=== PATIENT | female | born 1995 | race Caucasian/White ===

== ENCOUNTER → 2019-11-24 | Outpatient (REF) | payer BC ==
[2019-11-24 13:47] LABS: HEMATOCRIT 41.4 % (36.0-47.0); HEMOGLOBIN 14.1 g/dl (12.0-15.5); MEAN CORPUSCULAR HEMOGLOBIN 31.3 pg (27.0-33.0); MEAN CORPUSCULAR HGB CONC 34.1 g/dl (32.0-36.5); MEAN CORPUSCULAR VOLUME 91.8 fl (80.0-96.0); PLATELET COUNT, AUTOMATED 221 10^3/uL (150-450); RED BLOOD COUNT 4.51 10^6/uL (4.00-5.40); WHITE BLOOD COUNT 12.6 10^3/uL (4.0-10.0)
[2019-11-24 15:25] LABS: CHLAMYDIA DNA AMPLIFICATION NEGATIVE (NEGATIVE); GC DNA AMPLIFICATION NEGATIVE (NEGATIVE)
[2019-11-25 10:40] LABS: HEPATITIS C VIRUS ABY INDEX 0.1 INDEX (<0.8); HIV 1&2 SCREEN CENTAUR NEGATIVE (NEGATIVE)
== END ==
LOC: M PLALAB 10:45
PROVIDERS: ATTEND Advanced Practice Midwife
DX: Z34.01 Encounter for supervision of normal first pregnancy, first trimester (principal); Z3A.00 Weeks of gestation of pregnancy not specified

== ENCOUNTER → 2020-01-21 | Outpatient (CLI) | payer BC ==
[2020-01-21 17:31] LABS: FREE T4 0.95 NG/DL (0.76-1.46); THYROID STIMULATING HORMONE 1.26 uIU/ML (0.358-3.740)
== END ==
LOC: M PLALAB 12:01
PROVIDERS: ATTEND Advanced Practice Midwife
DX: R53.83 Other fatigue (principal)

== ENCOUNTER → 2020-01-22 | Outpatient (CLI) | payer BC ==
--- NOTE | 2020-02-16 13:11 | REP ---
COMPLETE OBSTETRICAL ULTRASOUND CLINICAL: Anatomical assessment. TECHNIQUE: Transabdominal obstetrical ultrasound with color Doppler evaluation. COMPARISON: None. FINDINGS: Ultrasound examination demonstrates a single live intrauterine in breech presentation. motion was identified by the technologist. Placenta noted posteriorly and grade 1 without placenta previa or abruption. Amniotic fluid volume is normal. cervix measures 3.5 cm in length and appears closed. heart rate 143 beats per minute. MEASUREMENTS: BPD 43 mm 19 weeks 0 days HC 161 mm 19 weeks 0 days AC 135 mm 19 weeks 0 days FL 29 mm 19 weeks 0 days HL 28 mm 19 weeks 1 day Estimated age by current measurements 19 weeks 0 days with estimated date of delivery 06/17/2020. Estimated weight 265 grams (50th percentile). Anatomical assessment demonstrates normal cisterna magna, cavum, thalamus, spine, stomach, kidneys/bladder, four chamber heart/ventricular outflow tracts, three-vessel cord/cord insertion, facial features, and extremities. IMPRESSION: Single live intrauterine in breech presentation demonstrating appropriate estimated weight. Anatomical assessment is complete and normal. No gross abnormalities are identified. MTDD
== END ==
LOC: M WHC 15:26
PROVIDERS: ATTEND Advanced Practice Midwife
DX: O32.1XX0 Maternal care for breech presentation, not applicable or unspecified (principal); Z3A.19 19 weeks gestation of pregnancy

== ENCOUNTER → 2020-03-15 | Outpatient (REF) | payer BC ==
[2020-03-15 14:11] LABS: HEMATOCRIT 35.7 % (36.0-47.0); MEAN CORPUSCULAR HEMOGLOBIN 31.9 pg (27.0-33.0); MEAN CORPUSCULAR HGB CONC 33.6 g/dl (32.0-36.5); MEAN CORPUSCULAR VOLUME 94.9 fl (80.0-96.0); PLATELET COUNT, AUTOMATED 216 10^3/uL (150-450); RED BLOOD COUNT 3.76 10^6/uL (4.00-5.40); WHITE BLOOD COUNT 13.6 10^3/uL (4.0-10.0)
== END ==
LOC: M PLALAB 10:15
PROVIDERS: ATTEND Advanced Practice Midwife
DX: Z34.02 Encounter for supervision of normal first pregnancy, second trimester (principal)

== ENCOUNTER → 2020-04-22 | Outpatient (REF) | payer BC, SELFPAY ==
[~2020-04-22] MED LIST: PRENATAL VITAMIN OR; TUMS750C5 PO
== END ==
LOC: M PLALAB 09:37
PROVIDERS: ATTEND Advanced Practice Midwife
DX: Z34.03 Encounter for supervision of normal first pregnancy, third trimester (principal)

== ENCOUNTER 2020-04-25 12:58 | Emergency (ER) | payer BC, OTHER, SELFPAY ==
[~2020-04-25] VITALS: Ht 157.5 cm; Wt 98.8 kg
[2020-04-25 13:15] VITALS: BP 133/87
[2020-04-25] MEDS ORDERED: PRENATAL VITAMIN OR (13:20)
[2020-04-25] MEDS ORDERED: TUMS750C5 PO (14:21)
== END 2020-04-25 13:54 | disposition admitted as inpatient to this hospital (09) ==
LOC: M ED 12:58
DX: Z04.1 Encounter for examination and observation following transport accident (principal); V43.52XA Car driver injured in collision with other type car in traffic accident, initial encounter; Y92.410 Unspecified street and highway as the place of occurrence of the external cause; Z3A.32 32 weeks gestation of pregnancy

== ENCOUNTER 2020-04-25 14:01 | Outpatient (CLI) | payer OTHER, SELFPAY ==
[~2020-04-25] VITALS: Ht 157.5 cm; Wt 98.5 kg
[~2020-04-25 14:01] MED LIST changes: -TUMS750C5 PO
[2020-04-25] MEDS ORDERED: TUMS750C5 PO (14:21)
[2020-04-25 14:23] VITALS: BP 138/87
[2020-04-25 14:26] LABS: HEMOGLOBIN 11.7 g/dl (12.0-15.5); MEAN CORPUSCULAR HEMOGLOBIN 30.7 pg (27.0-33.0); MEAN CORPUSCULAR HGB CONC 33.4 g/dl (32.0-36.5); MEAN CORPUSCULAR VOLUME 91.9 fl (80.0-96.0); PLATELET COUNT, AUTOMATED 247 10^3/uL (150-450); RED BLOOD COUNT 3.81 10^6/uL (4.00-5.40)
[2020-04-25 14:43] LABS: INR 0.86; PROTHROMBIN TIME 11.9 SECONDS (12.5-14.3)
[2020-04-25 15:37] VITALS: BP 133/79
[2020-04-25 17:08] VITALS: BP 129/77
[2020-04-25] MEDS ORDERED: RHOGAM 300 MCG (1500 IU) INJ (J2790) IM ONE (17:15)
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
== END 2020-04-25 17:31 | disposition home or self-care (01) ==
LOC: M LDO 14:01
PROVIDERS: ATTEND Advanced Practice Midwife
DX: Z04.1 Encounter for examination and observation following transport accident (principal); Z3A.32 32 weeks gestation of pregnancy
CPT/HCPCS: 36415; 59025; 85027; 85384; 85460; 85610; 86850; 86900; 86901; 96372; G0378; G0463; J2790

== ENCOUNTER → 2020-05-25 | Outpatient (REF) | payer BC ==
[~2020-05-25] MED LIST changes: +ACET-683 PO; +IBUP80TA PO; +TUMS750C5 PO
== END ==
LOC: M SFHCWAGY 10:01
PROVIDERS: ATTEND Advanced Practice Midwife
DX: O99.820 Streptococcus B carrier state complicating pregnancy (principal); Z3A.36 36 weeks gestation of pregnancy

== ENCOUNTER 2020-06-15 15:57 | Inpatient (IN) | payer BC, OTHER ==
[~2020-06-15] VITALS: Ht 157.5 cm; Wt 102.5 kg
[2020-06-15] VITALS (10 sets, daily range): BP systolic 104–146; BP diastolic 64–92
[~2020-06-15 15:57] MED LIST changes: -ACET-683 PO; -IBUP80TA PO
--- OUTSIDE RECORDS SUMMARY | 2020-06-15 16:50 | CCD ---
Author Author [facility] Organization [facility] Address Unknown Phone Unavailable Care Team Providers Care Microbiological Analyst Name Role Phone Ricarda Villar Unavailable PROBLEMS Type Condition ICD9-CM Code [id number] Code Onset Dates Condition S tatus SNOMED Code Notes Problem Allergic rhinitis, unspecified seasonality, unspecifie d trigger J30.9 Active 21870420 Problem Supervision of other normal Z34.80 Ac tive 171483184 ALLERGIES No Known Allergies ENCOUNTERS from 1994 to 2020-06-07 Encounter Location Date Provider Diagnosis [facility] [address] [place] [phone] May, Ricarda Villar 37 weeks gestatio n of Z3A.37 ; Diseases of the respiratory system complicating , third trimester O99.513 and Asthma J45.909 IMMUNIZATIONS Vaccine Route Administration Date Status TDAP 0.5mL (Boostrix) IM Intramuscular May 09, 2020 Administe red SOCIAL HISTORY Tobacco Use: Social History Observation Description Date Details (start date - stop date) Never Smoker Sex Assigned At : Social History Observation Description Sex Assigned At Unknown Education: Question Answer Notes Level of Education: College Language: Question Answer Notes Languages spoken: Macedonian Alcohol Screening: Question Answer Notes Did you have a drink containing alcohol in the past year? Ye s Points 2 Interpretation Negative How often did you have six or more drinks on one occas ion in the past year? Never (0 points) How many drinks did you have on a typica l day when you were drinking in the past year? 1 or 2 (0 points) How often did you have a drink containing alcohol in t he past year? Two to four times a month (2 points) Tobacco Use: Question Answer Notes Are you a: never smoker REASON FOR REFERRAL No Information VITAL SIGNS Weight 223.4 lbs May, Weight-kg 101.33 kg May, Height 62 in May, BMI 40.86 kg/m2 May, Blood pressure systolic 128 mm Hg May, Blood pressure diastolic 72 mm Hg May, MEDICATIONS Medication SIG (Take, Route, Frequency, Duration) Notes Start Da te End Date Status Vitamin Active Spacer/Aero-Holding Chambers - as directed _ _ for 99 months Oct, Not-Taking Ventolin HFA 108 (90 Base) MCG/ACT 2 puffs as needed I nhalation every 6 hrs as needed for 30 day(s) Oct, Not-Taking Vitamin D 25 MCG (1000 UT) 1 tablet Orally Once a day Active Vitamin B 12 Not-Taking PROCEDURES No Information RESULTS No Results REASON FOR VISIT 1 WK PN MEDICAL (GENERAL) HISTORY Type Description Date Medical History asthma - mild intermittent Surgical History tonsillectomy Surgical History wisdom teeth Goals Section No Information Health Concerns No Information MEDICAL EQUIPMENT No Information MENTAL STATUS No Information FUNCTIONAL STATUS No Information ASSESSMENTS Encounter Date Diagnosis Assessment Notes Treatment Notes Treatm ent Clinical Notes May, 37 weeks gestation of (ICD-10 - Z3A.37 ) May, Diseases of the respiratory system complicating , third trimester (ICD-10 - O99.513) May, Asthma (ICD-10 - J45.909) PLAN OF TREATMENT Next Appt Details 1 Week Reason:PN Provider Name:Ricarda Villar, 2020-06-08 08:40:00 AM, [address] [place], [address], Follow Up:1 WeekPN Insurance Providers Payer Name Payer Address Payer Phone Insured Name Patient Relati onship to Insured Coverage Start Date Coverage End Date BCBS OF [facility] [phone] [facility] [address] [place] self
--- OUTSIDE RECORDS SUMMARY | 2020-06-15 16:50 | CCD ---
Author Author [facility] Organization [facility] Address Unknown Phone Unavailable Care Team Providers Care Grocery Clerk Checking Name Role Phone Ricarda Villar Unavailable PROBLEMS Type Condition ICD9-CM Code [id number] Code Onset Dates Condition S tatus SNOMED Code Notes Problem Allergic rhinitis, unspecified seasonality, unspecifie d trigger J30.9 Active 33890149 Problem Supervision of other normal Z34.80 Ac tive 852342511 ALLERGIES No Known Allergies ENCOUNTERS from 1994 to 2020-05-28 Encounter Location Date Provider Diagnosis [facility] [address] [place] [phone] May, Ricarda Villar 36 weeks gestatio n of Z3A.36 ; Other specified related conditions, third trimester O26.893 and Pelvic pain R10.2 IMMUNIZATIONS Vaccine Route Administration Date Status TDAP 0.5mL (Boostrix) IM Intramuscular May 09, 2020 Administe red SOCIAL HISTORY Tobacco Use: Social History Observation Description Date Details (start date - stop date) Never Smoker Sex Assigned At : Social History Observation Description Sex Assigned At Unknown Education: Question Answer Notes Level of Education: College Language: Question Answer Notes Languages spoken: Nicaraguan Alcohol Screening: Question Answer Notes Did you [...] FOR REFERRAL No Information VITAL SIGNS Weight 224 lbs May, Weight-kg 101.6 kg May, Height 62 in May, BMI 40.97 kg/m2 May, Blood pressure systolic 128 mm Hg May, Blood pressure diastolic 82 mm Hg May, MEDICATIONS Medication SIG (Take, Route, Frequency, Duration) Notes Start Da te End Date Status Spacer/Aero-Holding Chambers - as directed _ _ for 99 months Oct, Not-Taking Vitamin D 25 MCG (1000 UT) 1 tablet Orally Once a day Active Ventolin HFA 108 (90 Base) MCG/ACT 2 puffs as needed I nhalation every 6 hrs as needed for 30 day(s) Oct, Not-Taking Vitamin Active Vitamin B 12 Not-Taking PROCEDURES No Information RESULTS No Results REASON FOR VISIT 2WK PN MEDICAL (GENERAL) HISTORY Type Description Date Medical History asthma - mild intermittent Surgical History tonsillectomy Surgical History wisdom teeth Goals Section No Information Health Concerns No Information MEDICAL EQUIPMENT No Information MENTAL STATUS No Information FUNCTIONAL STATUS No Information ASSESSMENTS Encounter Date Diagnosis Assessment Notes Treatment Notes Treatm ent Clinical Notes May, 36 weeks gestation of (ICD-10 - Z3A.36 ) May, Other specified re lated conditions, third trimester (ICD- 10 - O26.893) May, Pelvic pain (ICD-10 - R10.2) PLAN OF TREATMENT Treatment Notes Test Name Order Date GROUP B STREP CULTURE 2020-05-28 Next Appt Details 1 Week Reason: Provider Name:Ricarda Araizaalanis, 2020-06-01 09:00:00 AM, [address] [place], [phone], Follow Up:1 WeekPrenatal Insurance Providers Payer Name Payer Address Payer Phone Insured Name Patient Relati onship to Insured Coverage Start Date Coverage End Date BCBS OF [facility] [phone] [facility] [id number] TR[place]EE
--- OUTSIDE RECORDS SUMMARY | 2020-06-15 16:51 | CCD ---
Author Author [facility] Organization [facility] Address Unknown Phone Unavailable Care Team Providers Care Terra Cotta Mold Maker Name Role Phone Navarro, Cullen Unavailable PROBLEMS Type Condition ICD9-CM Code QIA52-RP Code Onset Dates Condition S tatus SNOMED Code Notes Problem Allergic rhinitis, unspecified seasonality, unspecifie d trigger J30.9 Active 19005879 Problem Supervision of other normal Z34.80 Ac tive 985422188 ALLERGIES No Known Allergies ENCOUNTERS from 1994 to 2020-05-11 Encounter Location Date Provider Diagnosis [facility] [address] [place] [phone] Apr, Cullen Navarro Normal first pregnan cy in third trimester Z34.03 ; 34 weeks gestation of Z3A.34 and Encounter for immunization Z23 IMMUNIZATIONS Vaccine Route Administration Date Status TDAP 0.5mL (Boostrix) IM Intramuscular May 09, 2020 Administe red SOCIAL HISTORY Tobacco Use: Social History Observation Description Date Details (start date - stop date) Never Smoker Sex Assigned At : Social History Observation Description Sex Assigned At Unknown Education: Question Answer Notes Level of Education: College Language: Question Answer Notes Languages spoken: Maltese Alcohol Screening: Question Answer Notes Did you [...] FOR REFERRAL No Information VITAL SIGNS Weight 219 lbs Apr, Height 62 in Apr, BMI 40.056 kg/m2 Apr, Blood pressure systolic 122 mm Hg Apr, Blood pressure diastolic 64 mm Hg Apr, MEDICATIONS Medication SIG (Take, Route, Frequency, Duration) [...] Vitamin Active Vitamin B 12 Not-Taking PROCEDURES from 1994 to 2020-05-11 Procedure Date Ordered Result Body Site Immunization: Boostrix 0.5mL IM (TDAP) 2020-05-09 N/A RESULTS No Results REASON FOR VISIT 4 WK PN MEDICAL (GENERAL) HISTORY Type Description Date Medical History asthma - mild intermittent Surgical History tonsillectomy Surgical History wisdom teeth Goals Section No Information Health Concerns No Information MEDICAL EQUIPMENT No Information MENTAL STATUS No Information FUNCTIONAL STATUS No Information ASSESSMENTS Encounter Date Diagnosis Assessment Notes Treatment Notes Treatm ent Clinical Notes Apr, Normal first in third trimester (ICD-1 0 - Z34.03) Apr, 34 weeks gestation of (ICD-10 - Z3A.34 ) Apr, Encounter for immunization (ICD-10 - Z23) PLAN OF TREATMENT Next Appt Details 2 Weeks Reason:follow-up Provider Name:Ricarda Villar, 2020-05-25 01:40:00 PM, [address] [place], [address], Follow Up:2 Weeksfollow-up Insurance Providers Payer Name Payer Address Payer Phone Insured Name Patient Relati onship to Insured Coverage Start Date Coverage End Date BCBS OF [facility] [phone] [facility] [id number] [place] self
--- OUTSIDE RECORDS SUMMARY | 2020-06-15 16:51 | CCD | Continuity of Care Document ---
Author Author Maria Guadalupe SUMNER Organization Unknown Address [address] [place], [place] [address] Phone [phone] Care Team Providers Care Blow Molding Machine Operator Name Role Phone Jovon Michel Publi AUTM [phone] Problems Description No Information Available Social History Type Date Description Comments Sex Unknown Allergies, Adverse Reactions, Alerts Description No Information Available Medications Description No Information Available Immunizations Description No Information Available Vital Signs Description No Information Available Results Description No Information Available Procedures Description No Information Available Medical Devices Description No Information Available Encounters Description No Information Available Assessments Date Code Description Provider 04/20/2020 Z20.828 Contact with and (garcia spected) exposure to other viral communicable diseases JACOB Yan Plan of Treatment No Information Available Functional Status Description No Information Available Mental Status Description No Information Available Referrals Description No Information Available
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
--- OUTSIDE RECORDS SUMMARY | 2020-06-15 16:51 | CCD ---
Author Author [facility] Organization [facility] Address Unknown Phone Unavailable Care Team Providers Care Spring Layer Name Role Phone HugoRonnell Unavailable PROBLEMS Type Condition ICD9-CM Code [id number] Code Onset Dates Condition S tatus SNOMED Code Notes Problem Allergic rhinitis, unspecified seasonality, unspecifie d trigger J30.9 Active [id number] Problem Supervision of other normal Z34.80 Ac tive [id number] ALLERGIES No Known Allergies ENCOUNTERS from 1994 to 2020-04-27 Encounter Location Date Provider Diagnosis [facility] [address] [place] [id number] Apr, Ronnell Arias Encounter for superv ision of normal first in third trimester Z34.03 and 31 weeks gestation of Z3A.31 IMMUNIZATIONS No Information SOCIAL HISTORY Tobacco Use: Social History Observation Description Date Details (start date - stop date) Never Smoker Sex Assigned At : Social History Observation Description Sex Assigned At Unknown Education: Question Answer Notes Level of Education: College Language: Question Answer Notes Languages spoken: Singaporean Sexual Hx: Question Answer Notes Had sex [...] FOR REFERRAL No Information VITAL SIGNS Weight 214 lbs Apr, Height 62 in Apr, BMI 39.141 kg/m2 Apr, Blood pressure systolic 132 mm Hg Apr, Blood pressure diastolic 74 mm Hg Apr, MEDICATIONS Medication SIG (Take, Route, Frequency, Duration) Notes Start Da te End Date Status Vitamin B 12 Not-Taking Ventolin HFA 108 (90 Base) MCG/ACT 2 puffs as needed I nhalation every 6 hrs as needed for 30 day(s) Oct, Not-Taking Vitamin D 25 MCG (1000 UT) 1 tablet Orally Once a day Active Vitamin Active Spacer/Aero-Holding Chambers - as directed _ _ for 99 months Oct, Not-Taking PROCEDURES No Information RESULTS No Results REASON FOR VISIT 4 WK PN MEDICAL (GENERAL) HISTORY Type Description Date Medical History asthma - mild intermittent Surgical History tonsillectomy Surgical History wisdom teeth Goals Section No Information Health Concerns No Information MEDICAL EQUIPMENT No Information MENTAL STATUS No Information FUNCTIONAL STATUS No Information ASSESSMENTS Encounter Date Diagnosis Assessment Notes Treatment Notes Treatm ent Clinical Notes Apr, Encounter for supervision of normal first in third trimester (ICD-10 - Z34.03) Apr, 31 weeks gestation of (ICD-10 - Z3A.31 ) PLAN OF TREATMENT Treatment Notes Test Name Order Date RHOGAM 2020-04-27 Next Appt Details 2 Weeks Reason: Provider Name:Cullen Navarro, 08:40:00 AM, [address] [place], [address], Insurance Providers Payer Name Payer Address Payer Phone Insured Name Patient Relati onship to Insured Coverage Start Date Coverage End Date BCBS [facility] CINTHYA O [id number] [facility] [employer] [facility] [place] [address] TRIPP LEE self
--- OUTSIDE RECORDS SUMMARY | 2020-06-15 16:51 | CCD | Continuity of Care Document ---
Author Author Maria Guadalupe [facility] Organization Unknown Address [address] [place], [place] [address] Phone [phone] Care Team Providers Care Case Manager Name Role Phone Jovon Michel Publi AUTM [phone] Problems Description No Information Available Social History Type Date Description Comments Sex Unknown Allergies, Adverse Reactions, Alerts Description No Information Available Medications Description No Information Available Immunizations Description No Information Available Vital Signs Description No Information Available Results Description No Information Available Procedures Description No Information Available Medical Devices Description No Information Available Encounters Description No Information Available Assessments Description No Information Available Plan of Treatment No Information Available Functional Status Description No Information Available Mental Status Description No Information Available Referrals Description No Information Available
[2020-06-15 18:00] LABS: HEMATOCRIT 37.1 % (36.0-47.0); HEMOGLOBIN 12.6 g/dl (12.0-15.5); MEAN CORPUSCULAR HEMOGLOBIN 30.9 pg (27.0-33.0); MEAN CORPUSCULAR VOLUME 90.9 fl (80.0-96.0); PLATELET COUNT, AUTOMATED 216 10^3/uL (150-450); RED BLOOD COUNT 4.08 10^6/uL (4.00-5.40); WHITE BLOOD COUNT 16.5 10^3/uL (4.0-10.0)
--- NOTE | 2020-06-15 19:04 | HPE ---
HISTORY AND PHYSICAL DATE OF ADMISSION: 06/15/2020 HISTORY OF PRESENT ILLNESS: Maria Guadalupe is a 25-year-old 1, para 0, at 39 4/7 weeks gestation with an EDC of 06/18/2020, based on last menstrual period and confirmed by first trimester ultrasound. She presents to labor and delivery today with report of uncomfortable contractions that started at approximately 0500 and have progressively become closer together and more painful throughout the day. She does report some scant bloody show. Denies leakage of fluid and the fetus has been active. [facility] care was initiated at [facility] in the first trimester. Her course has been uncomplicated. OBSTETRIC HISTORY: Primigravida. OBSTETRIC LABS: A negative. Antibody screen negative. Syphilis negative. Gonorrhea and chlamydia negative. Hepatitis B surface antigen negative. Hepatitis C antibody negative. HIV negative. Rubella immune. Urine culture no growth. GBS negative. PAST MEDICAL HISTORY: Mild asthma. PAST SURGICAL HISTORY: 1. Tonsillectomy. 2. [place] tooth extraction. FAMILY HISTORY: Prostate cancer, hypertension, and diabetes. SOCIAL HISTORY: The patient is engaged. Her partner is at bedside and supportive. She is a nonsmoker. She denies alcohol and drug use. She does have a history of chlamydia in the past. She denies history of abuse physical, sexual, and emotional. ALLERGIES: No known drug allergies. CURRENT MEDICATIONS: vitamin. PHYSICAL EXAMINATION: VITAL SIGNS: Temperature 98.3, pulse 96, respirations 18, blood pressure 134/82. GENERAL APPEARANCE: She is alert and oriented x3. She does appear mildly uncomfortable with her contractions. VITAL SIGNS: heart rate is 145 with moderate variability, positive accelerations, negative decelerations. She is baylee approximately every three to four minutes. ABDOMEN: Gravid. Cephalic presentation. Estimated weight is 7.5 pounds. PELVIC: On sterile vaginal exam 4 cm dilated, 90% effaced, -2 station. Mid position with positive show. ASSESSMENT: Intrauterine at 39 4/7 weeks. heart rate category 1 in labor. PLAN: Admit the patient to labor and delivery. Routine labs. Saline lock. Out of bed ad joie. Regular diet at this time. The patient desires to cope with her labor physiologically and requests to use hydrotherapy. I did review risks, benefits, and alternatives. She has had all of her questions answered. She has been verbally consented for emergency surgery and blood products if they are necessary. I do anticipate continued labor progress and a vaginal delivery.
[2020-06-15] MEDS ORDERED: OXYTOCIN 30 UNITS IN 0.9% NaCl 500ML IV BAG (J2590) As Ordered ONE (19:14)
[2020-06-15] MEDS ORDERED: IBUPROFEN 600MG TAB PO PRN (20:15)
[2020-06-15] MEDS ORDERED: ACETAMINOPHEN TAB 650MG DOSE (2X325MG) PO PRN (20:15)
[2020-06-15] MEDS ORDERED: ANUSOL HC CREAM 30GM TOP PRN (20:15)
[2020-06-15] MEDS ORDERED: METHYLERGONOVINE MALEATE 0.2 MG TAB PO PRN (20:15)
[2020-06-15] MEDS ORDERED: ACETAMINOPHEN 500 MG TAB PO PRN (20:15)
[2020-06-15] MEDS ORDERED: RHOGAM 300 MCG (1500 IU) INJ (J2790) IM SCH (20:15)
[2020-06-15] MEDS ORDERED: BENZOCAINE 20% HEMORRHOIDAL OINTMENT 28GM TUBE TOP PRN (20:15)
[2020-06-15] MEDS ORDERED: LIDOCAINE 1% MDV 20ML VIAL INFIL ONE (20:15)
[2020-06-15] MEDS ORDERED: MEASLES,MUMPS,RUBELLA VACCINE INJ (MMR-II) (90707) SC SCH (20:15)
[2020-06-15] MEDS ORDERED: OXYTOCIN DRIP 30 UNITS in IV 1 EA IV SCH (20:15)
[2020-06-15] MEDS ORDERED: DOCUSATE SODIUM 100MG CAPSULE PO PRN (20:15)
--- NOTE | 2020-06-15 20:32 | DN ---
DELIVERY NOTE DATE OF DELIVERY: 06/15/2020 TIME OF : 1945 GENDER: Male. APGARS: 9 and 9. LACERATIONS: First-degree. ANESTHESIA: ESTIMATED BLOOD LOSS: 300 mL. COUNTS: Correct and verified. DESCRIPTION OF DELIVERY: Maria Guadalupe is a 25-year-old 1, para 1-0-0-1 now who was admitted to labor and delivery in active labor. She had spontaneous rupture of membranes and reached complete dilation at 1935. She pushed to a normal spontaneous vaginal delivery of a live male infant in occiput anterior (OA) position with restitution to right occiput transverse (ROT) position at 1945. There was no nuchal cord. Shoulders delivered spontaneously and the corpus immediately followed. The male was laid on the maternal abdomen crying and active. Mouth and nares were bulb suctioned. Cord was clamped x2 once pulsations ceased and cut by the father of the baby under my direction. Spontaneous expulsion of an intact placenta with three-vessel cord by Vega mechanism was at 1950. Uterine hemostasis achieved with IV Pitocin rapid infusion and uterine fundal massage. Estimated blood loss 300 mL. Perineum and vagina inspected noted to have a first-degree laceration. The laceration was infiltrated with 1% Lidocaine and repaired with 3-0 Vicryl Rapide in the usual fashion. The male weighed 7 pounds 11 ounces (3480 grams). 9 and 9. Mom is going to breastfeed her son and the family have named him Tonio. At the close of delivery lap counts, needle counts, and instrument counts were correct and verified.
[2020-06-16 05:40] VITALS: BP 127/65
[2020-06-16 08:50] VITALS: BP 127/65
[2020-06-16] MEDS: PRENATAL VITAMINS CHEWABLE TABLET PO SCH (09:20)
[2020-06-16] MEDS: IBUPROFEN 800 MG TAB PO PRN (09:20)
[2020-06-16 18:00] VITALS: BP 134/75
[2020-06-17 06:12] VITALS: BP 132/78
[2020-06-17] MEDS: IBUPROFEN 800 MG TAB PO PRN (06:30)
[2020-06-17] MEDS ORDERED: ACET-683 PO (07:46)
[2020-06-17] MEDS ORDERED: IBUP80TA PO (07:46)
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
[2020-06-17] MEDS: PRENATAL VITAMINS CHEWABLE TABLET PO SCH (09:00)
== END 2020-06-17 12:10 | disposition home or self-care (01) | DRG 560 ==
LOC: M LDO 15:57 → M LDI 16:47 → M OBS 22:10
PROVIDERS: ADMIT Advanced Practice Midwife; ATTEND Advanced Practice Midwife
PROC: 10E0XZZ Delivery of Products of Conception, External Approach (ICD-10-PCS; principal; 2020-06-15)
PROC: 0HQ9XZZ Repair Perineum Skin, External Approach (ICD-10-PCS; 2020-06-15)
DX: O70.0 First degree perineal laceration during delivery (principal); Z3A.39 39 weeks gestation of pregnancy; Z37.0 Single live birth

== ENCOUNTER → 2020-10-10 | Outpatient (REF) | payer BC ==
[~2020-10-10] MED LIST changes: +ACET-683 PO; +IBUP80TA PO
== END ==
LOC: M SFHCWAGY 17:05
PROVIDERS: ATTEND Advanced Practice Midwife
DX: Z12.4 Encounter for screening for malignant neoplasm of cervix (principal); Z01.419 Encounter for gynecological examination (general) (routine) without abnormal findings

== ENCOUNTER → 2022-02-01 | Outpatient (CLI) | payer BC ==
[2022-02-01 17:22] LABS: BASO % 0.2 % (0.0-1.0); EOS # 0.2 10^3/uL (0.0-0.5); EOS % 1.3 % (0.0-3.0); HEMATOCRIT 45.2 % (36.0-47.0); HEMOGLOBIN 15.1 g/dl (12.0-15.5); LYMPH # 2.6 10^3/uL (1.5-5.0); LYMPH % 21.1 % (24.0-44.0); MEAN CORPUSCULAR HEMOGLOBIN 30.7 pg (27.0-33.0); MEAN CORPUSCULAR HGB CONC 33.4 g/dl (32.0-36.5); MEAN CORPUSCULAR VOLUME 91.9 fl (80.0-96.0); MONO # 0.7 10^3/uL (0.0-0.8); MONO % 5.7 % (2.0-8.0); NEUTROPHILS # 8.9 10^3/uL (1.5-8.5); NEUTROPHILS % 71.4 % (36.0-66.0); PLATELET COUNT, AUTOMATED 243 10^3/uL (150-450); RED BLOOD COUNT 4.92 10^6/uL (4.00-5.40); WHITE BLOOD COUNT 12.4 10^3/uL (4.0-10.0)
[2022-02-01 18:14] LABS: ALBUMIN 4.3 GM/DL (3.2-5.2); ALT/SGPT 24 U/L (12-78); BILIRUBIN,TOTAL 0.5 MG/DL (0.2-1.0); BLOOD UREA NITROGEN 13 MG/DL (7-18); CALCIUM LEVEL 9.1 MG/DL (8.5-10.1); CARBON DIOXIDE LEVEL 23 MEQ/L (21-32); CHLORIDE LEVEL 105 MEQ/L (98-107); CREATININE FOR GFR 0.76 MG/DL (0.55-1.30); FREE T4 1.04 NG/DL (0.76-1.46); GLOMERULAR FILTRATION RATE > 60.0 (>60); GLUCOSE, FASTING 92 MG/DL (70-100); IRON (FE) 67 UG/DL (50-170); PERCENT SATURATION 18.1 % (13.2-45.0); POTASSIUM SERUM 4.1 MEQ/L (3.5-5.1); SODIUM LEVEL 137 MEQ/L (136-145); TOTAL IRON BINDING CAPACITY 371 UG/DL (250-450); TOTAL PROTEIN 7.7 GM/DL (6.4-8.2)
[2022-02-01 18:43] LABS: TOTAL 25(OH) VITAMIN D 25.1 NG/ML (30.0-100.0); VITAMIN B12 LEVEL 855 PG/ML (247-911)
== END ==
LOC: M WUC 13:55
PROVIDERS: ATTEND Internal Medicine
DX: R53.83 Other fatigue (principal); R53.81 Other malaise

== ENCOUNTER → 2022-07-25 | Outpatient (CLI) | payer BC | LOC: M WHC 11:57 | PROVIDERS: ATTEND Nurse Practitioner Family | DX: N64.4 Mastodynia (principal); R10.2 Pelvic and perineal pain ==

== ENCOUNTER → 2022-07-25 | Outpatient (CLI) | payer BC ==
[2022-07-25 11:35] LABS: BASO # 0.1 10^3/uL (0.0-0.2); BASO % 0.7 % (0.0-1.0); EOS # 0.2 10^3/uL (0.0-0.5); EOS % 2.3 % (0.0-3.0); HEMATOCRIT 43.5 % (36.0-47.0); HEMOGLOBIN 14.7 g/dl (12.0-15.5); LYMPH # 2.3 10^3/uL (1.5-5.0); LYMPH % 33.6 % (24.0-44.0); MEAN CORPUSCULAR HEMOGLOBIN 31.1 pg (27.0-33.0); MEAN CORPUSCULAR HGB CONC 33.8 g/dl (32.0-36.5); MEAN CORPUSCULAR VOLUME 92.2 fl (80.0-96.0); MONO # 0.5 10^3/uL (0.0-0.8); MONO % 6.5 % (2.0-8.0); NEUTROPHILS % 56.6 % (36.0-66.0); PLATELET COUNT, AUTOMATED 254 10^3/uL (150-450); RED BLOOD COUNT 4.72 10^6/uL (4.00-5.40)
[2022-07-25 12:05] LABS: THYROID STIMULATING HORMONE 1.204 uIU/ML (0.55-4.78)
[2022-07-25 12:06] LABS: PROLACTIN 4.25 NG/ML; TOTAL 25(OH) VITAMIN D 40.7 NG/ML (20.0-100.0)
[2022-07-25 12:07] LABS: FREE T4 1.27 NG/DL (0.89-1.76)
== END ==
LOC: M PLALAB 08:57
PROVIDERS: ATTEND Nurse Practitioner Family
DX: N64.3 Galactorrhea not associated with childbirth (principal); Z12.4 Encounter for screening for malignant neoplasm of cervix
CPT/HCPCS: 36415; 82306; 84146; 84439; 84443; 85025; G0123

== ENCOUNTER → 2022-08-07 | Outpatient (REF) | payer BC | LOC: M PLALAB 16:00 | PROVIDERS: ATTEND Nurse Practitioner Family | DX: R10.2 Pelvic and perineal pain (principal) ==

== ENCOUNTER → 2022-08-09 | Outpatient (CLI) | payer BC | LOC: M WHC 11:55 | PROVIDERS: ATTEND Nurse Practitioner Family | DX: R10.2 Pelvic and perineal pain (principal); N83.202 Unspecified ovarian cyst, left side ==

== ENCOUNTER → 2022-09-18 | Outpatient (CLI) | payer BC | LOC: M WHC 08:00 | PROVIDERS: ATTEND Nurse Practitioner Family | DX: N64.4 Mastodynia (principal) ==

== ENCOUNTER → 2022-09-24 | Outpatient (CLI) | payer BC | LOC: M WHC 11:55 | PROVIDERS: ATTEND Nurse Practitioner Family | DX: N83.201 Unspecified ovarian cyst, right side (principal) ==

== ENCOUNTER → 2022-10-02 | Outpatient (CLI) | payer BC ==
[~2022-10-02] MED LIST changes: +GASTROGRAFIN SOLUTION 30ML As Ordered ONE; +ISOVUE-370 76% 100ML VIAL As Ordered ONE
== END ==
LOC: M RAD 12:04
PROVIDERS: ATTEND Nurse Practitioner Family
DX: R10.9 Unspecified abdominal pain (principal)

== ENCOUNTER → 2023-01-03 | Outpatient (CLI) | payer BC ==
[~2023-01-03] MED LIST changes: -GASTROGRAFIN SOLUTION 30ML As Ordered ONE; -ISOVUE-370 76% 100ML VIAL As Ordered ONE
[2023-01-03 13:58] LABS: BASO % 0.3 % (0.0-1.0); EOS # 0.2 10^3/uL (0.0-0.5); HEMATOCRIT 41.5 % (36.0-47.0); HEMOGLOBIN 13.9 g/dl (12.0-15.5); LYMPH # 2.1 10^3/uL (1.5-5.0); LYMPH % 23.2 % (24.0-44.0); MEAN CORPUSCULAR HEMOGLOBIN 31.2 pg (27.0-33.0); MEAN CORPUSCULAR HGB CONC 33.5 g/dl (32.0-36.5); MEAN CORPUSCULAR VOLUME 93.3 fl (80.0-96.0); MONO # 0.6 10^3/uL (0.0-0.8); MONO % 6.9 % (2.0-8.0); NEUTROPHILS # 5.9 10^3/uL (1.5-8.5); NEUTROPHILS % 67.4 % (36.0-66.0); PLATELET COUNT, AUTOMATED 211 10^3/uL (150-450); RED BLOOD COUNT 4.45 10^6/uL (4.00-5.40); WHITE BLOOD COUNT 8.8 10^3/uL (4.0-10.0)
[2023-01-03 14:28] LABS: FERRITIN 42.4 NG/ML (7.3-270.7); TOTAL 25(OH) VITAMIN D 44.2 NG/ML (20.0-100.0)
[2023-01-04 19:06] LABS: TISSUE TRANSGLUTAMINASE IgA <2 U/mL (0-3); TISSUE TRANSGLUTAMINASE IgG <2 U/mL (0-5)
== END ==
LOC: M PLALAB 09:08
PROVIDERS: ATTEND Internal Medicine Hematology
DX: K58.0 Irritable bowel syndrome with diarrhea (principal)

== ENCOUNTER 2023-06-12 08:57 | Emergency (ER) | payer BC ==
[~2023-06-12] VITALS: Ht 157.5 cm; Wt 76.7 kg
[2023-06-12] MEDS ORDERED: ONDANSETRON 4MG ORAL DISINTEGRATING TAB PO ONE (09:30)
[2023-06-12] MEDS ORDERED: ONDANSETRON 4MG 2ML VIAL IV ONE (10:30)
[2023-06-12] MEDS ORDERED: NS 1,000 ML IV ONE (10:30)
[2023-06-12 11:36] LABS: BLOOD UREA NITROGEN 11 MG/DL (9-23); CALCIUM LEVEL 9.4 MG/DL (8.5-10.1); CARBON DIOXIDE LEVEL 25 MMOL/L (20-31); CHLORIDE LEVEL 102 MMOL/L (98-107); CREATININE FOR GFR 0.57 MG/DL (0.55-1.30); GLOMERULAR FILTRATION RATE > 60.0 (>60); GLUCOSE, FASTING 82 MG/DL (60-100); POTASSIUM SERUM 3.7 MMOL/L (3.5-5.1); SODIUM LEVEL 135 MMOL/L (136-145)
[2023-06-12] MEDS ORDERED: PYRIDOXINE 50 MG TAB PO ONE (12:00)
[2023-06-12] MEDS ORDERED: ONDA4TAB6 PO (13:02)
[2023-06-12 13:17] VITALS: BP 125/75; TEMP 98.7; O2SAT 99
== END 2023-06-12 13:22 | disposition home or self-care (01) ==
LOC: M ED 08:57
DX: O21.9 Vomiting of pregnancy, unspecified (principal)
CPT/HCPCS: 80048; 96361; 96374; 99284; J2405

== ENCOUNTER → 2023-07-02 | Outpatient (CLI) | payer BC ==
[~2023-07-02] MED LIST changes: +ONDA4TAB6 PO
[2023-07-02 15:59] LABS: HEMATOCRIT 36.7 % (36.0-47.0); HEMOGLOBIN 12.5 g/dl (12.0-15.5); MEAN CORPUSCULAR HEMOGLOBIN 31.1 pg (27.0-33.0); MEAN CORPUSCULAR HGB CONC 34.1 g/dl (32.0-36.5); MEAN CORPUSCULAR VOLUME 91.3 fl (80.0-96.0); PLATELET COUNT, AUTOMATED 203 10^3/uL (150-450); RED BLOOD COUNT 4.02 10^6/uL (4.00-5.40); WHITE BLOOD COUNT 12.9 10^3/uL (4.0-10.0)
[2023-07-02 16:50] LABS: HIV 1&2 SCREEN NEGATIVE (NEGATIVE)
[2023-07-02 16:58] LABS: HEPATITIS C VIRUS ABY INDEX < 0.02 INDEX (<0.8)
[2023-07-02 17:18] LABS: CHLAMYDIA DNA AMPLIFICATION NEGATIVE (NEGATIVE); GC DNA AMPLIFICATION NEGATIVE (NEGATIVE)
== END ==
LOC: M PLALAB 10:26
PROVIDERS: ATTEND Advanced Practice Midwife
DX: Z34.91 Encounter for supervision of normal pregnancy, unspecified, first trimester (principal)

== ENCOUNTER → 2023-09-02 | Outpatient (CLI) | payer BC | LOC: M WHC 09:50 | PROVIDERS: ATTEND Advanced Practice Midwife | DX: Z34.92 Encounter for supervision of normal pregnancy, unspecified, second trimester (principal) ==

== ENCOUNTER → 2023-10-28 | Outpatient (CLI) | payer BC ==
[~2023-10-28] MED LIST changes: +ONDA-282 PO; -ONDA4TAB6 PO
== END ==
LOC: M WHC 08:52
PROVIDERS: ATTEND Obstetrics & Gynecology
DX: Z36.2 Encounter for other antenatal screening follow-up (principal)

== ENCOUNTER → 2023-10-29 | Outpatient (CLI) | payer BC ==
[2023-10-29 13:25] LABS: HEMATOCRIT 32.3 % (36.0-47.0); HEMOGLOBIN 11.3 g/dl (12.0-15.5); MEAN CORPUSCULAR HEMOGLOBIN 33.7 pg (27.0-33.0); MEAN CORPUSCULAR VOLUME 96.4 fl (80.0-96.0); PLATELET COUNT, AUTOMATED 232 10^3/uL (150-450); RED BLOOD COUNT 3.35 10^6/uL (4.00-5.40); WHITE BLOOD COUNT 13.5 10^3/uL (4.0-10.0)
[2023-10-29 14:51] LABS: GC DNA AMPLIFICATION NEGATIVE (NEGATIVE)
== END ==
LOC: M PLALAB 09:48
PROVIDERS: ATTEND Obstetrics & Gynecology
DX: Z34.92 Encounter for supervision of normal pregnancy, unspecified, second trimester (principal)

== ENCOUNTER → 2023-12-31 | Outpatient (REF) | payer BC | LOC: M PLALAB 08:37 | PROVIDERS: ATTEND Advanced Practice Midwife | DX: Z36.85 Encounter for antenatal screening for Streptococcus B (principal); Z3A.36 36 weeks gestation of pregnancy ==

== ENCOUNTER 2024-01-23 14:25 | Inpatient (IN) | payer BC ==
[2024-01-23] VITALS (10 sets, daily range): BP systolic 115–141; BP diastolic 61–81; O2SAT 97
[~2024-01-23] VITALS: Ht 157.5 cm; Wt 95.3 kg
[2024-01-23] MEDS ORDERED: PRENTAB9 PO (14:38)
[2024-01-23] MEDS ORDERED: HOME MED LIST COMPLETE! XX SCH (14:40)
[2024-01-23] MEDS ORDERED: OXYTOCIN DRIP 30 UNITS in IV 1 EA IV PRN (15:00)
[2024-01-23] MEDS ORDERED: LIDOCAINE 1% MDV 20ML VIAL INFIL PRN (15:00)
[2024-01-23 15:32] LABS: HEMATOCRIT 35.3 % (36.0-47.0); HEMOGLOBIN 12.3 g/dl (12.0-15.5); MEAN CORPUSCULAR HEMOGLOBIN 31.9 pg (27.0-33.0); MEAN CORPUSCULAR HGB CONC 34.8 g/dl (32.0-36.5); MEAN CORPUSCULAR VOLUME 91.7 fl (80.0-96.0); PLATELET COUNT, AUTOMATED 214 10^3/uL (150-450); RED BLOOD COUNT 3.85 10^6/uL (4.00-5.40); WHITE BLOOD COUNT 13.7 10^3/uL (4.0-10.0)
[2024-01-23] MEDS ORDERED: METHYLERGONOVINE MALEATE 0.2 MG TAB PO PRN (20:25)
[2024-01-23] MEDS ORDERED: ACETAMINOPHEN TAB 650MG DOSE (2X325MG) PO PRN (20:25)
[2024-01-23] MEDS ORDERED: IBUPROFEN 600MG TAB PO PRN (20:25)
[2024-01-23] MEDS ORDERED: DIBUCAINE 1% OINTMENT 30GM TOP PRN (20:25)
[2024-01-23] MEDS: IBUPROFEN 800 MG TAB PO PRN (21:02)
[2024-01-24 05:53] VITALS: BP 113/65; O2SAT 98
[2024-01-24] MEDS: PRENATAL VITAMINS CHEWABLE TABLET PO SCH (07:28)
[2024-01-24] MEDS: RHO(D) IMMUNE GLOBULIN/MALTOSE 500MCG(2500IU)/2.2ML VIAL (WINRHO) IM SCH (09:52)
[2024-01-24] MEDS: ACETAMINOPHEN 500 MG TAB PO PRN (10:02)
[2024-01-24 18:00] VITALS: BP 96/62; O2SAT 98
[2024-01-24] MEDS: DOCUSATE SODIUM 100MG CAPSULE PO PRN (18:24)
[2024-01-25 05:44] VITALS: BP 129/78; O2SAT 97
[2024-01-25] MEDS: MEASLES,MUMPS,RUBELLA VACCINE INJ (MMR-II) SC.IMMUN ONE (09:00)
[2024-01-25 17:23] LABS: HEPATITIS C VIRUS ABY INDEX < 0.02 INDEX (<0.8)
== END 2024-01-25 13:15 | disposition home or self-care (01) | DRG 560 ==
LOC: M LDO 14:25 → M LDI 14:46 → M OBS 21:44
PROVIDERS: ADMIT Specialist; ATTEND Specialist
PROC: 10E0XZZ Delivery of Products of Conception, External Approach (ICD-10-PCS; principal; 2024-01-23)
DX: O80 Encounter for full-term uncomplicated delivery (principal); Z37.0 Single live birth; Z3A.39 39 weeks gestation of pregnancy

== ENCOUNTER → 2024-07-27 | Outpatient (CLI) | payer BC ==
[~2024-07-27] MED LIST changes: +PRENTAB9 PO
[2024-07-27 18:10] LABS: BASO % 0.4 % (0.0-1.0); EOS # 0.2 10^3/uL (0.0-0.5); EOS % 2.4 % (0.0-3.0); HEMATOCRIT 40.9 % (36.0-47.0); HEMOGLOBIN 13.9 g/dl (12.0-15.5); LYMPH # 2.4 10^3/uL (1.5-5.0); LYMPH % 32.6 % (24.0-44.0); MEAN CORPUSCULAR HEMOGLOBIN 30.5 pg (27.0-33.0); MEAN CORPUSCULAR VOLUME 89.9 fl (80.0-96.0); MONO # 0.7 10^3/uL (0.0-0.8); MONO % 9.3 % (2.0-8.0); NEUTROPHILS # 4.1 10^3/uL (1.5-8.5); NEUTROPHILS % 55.2 % (36.0-66.0); PLATELET COUNT, AUTOMATED 261 10^3/uL (150-450); RED BLOOD COUNT 4.55 10^6/uL (4.00-5.40); WHITE BLOOD COUNT 7.5 10^3/uL (4.0-10.0)
[2024-07-27 18:39] LABS: ALBUMIN 4.2 G/DL (3.2-5.2); ALKALINE PHOSPHATASE 60 U/L (35-104); ALT/SGPT 21 U/L (7.0-40); AST/SGOT 11 U/L (<34); BILIRUBIN,TOTAL 0.4 MG/DL (0.3-1.2); BLOOD UREA NITROGEN 16 MG/DL (9-23); CALCIUM LEVEL 9.3 MG/DL (8.5-10.1); CARBON DIOXIDE LEVEL 28 MMOL/L (20-31); CHLORIDE LEVEL 104 MMOL/L (98-107); CREATININE FOR GFR 0.71 MG/DL (0.55-1.30); GLOMERULAR FILTRATION RATE > 60.0 (>60); GLUCOSE, FASTING 79 MG/DL (60-100); HCG, SERUM QUANTITATIVE < 2.6 MIU/ML (<4.2); IRON (FE) 60 UG/DL (50-170); MAGNESIUM LEVEL 2.2 MG/DL (1.8-2.4); POTASSIUM SERUM 4.3 MMOL/L (3.5-5.1); SODIUM LEVEL 139 MMOL/L (136-145); TOTAL PROTEIN 7.7 G/DL (5.7-8.2)
[2024-07-27 18:40] LABS: THYROID STIMULATING HORMONE 4.826 uIU/ML (0.55-4.78); TOTAL 25(OH) VITAMIN D 34.4 NG/ML (20.0-100.0)
[2024-07-27 18:41] LABS: FREE T4 1.11 NG/DL (0.89-1.76)
[2024-07-27 18:45] LABS: VITAMIN B12 LEVEL > 2000 PG/ML (211-911)
== END ==
LOC: M PLALAB 15:45
PROVIDERS: ATTEND Physician Assistant Medical
DX: R55 Syncope and collapse (principal)